=== PATIENT | female | born 1975 | race Caucasian/White ===

== ENCOUNTER 2020-06-26 10:39 | Observation (INO) | payer SELFPAY ==
[~2020-06-26] VITALS: Ht 162.6 cm; Wt 104.5 kg
[~2020-06-26 10:39] MED LIST: FLEXERIL 1010 MG/TAB PO; NORCO 325 MG-51 TAB PO
[2020-06-26] MEDS ORDERED: PRILOTC PO (10:49)
[2020-06-26] MEDS ORDERED: LIPITOR 10MG10 MG PO (10:50)
[2020-06-26] MEDS ORDERED: ALLEGRA ALLERG180 MG PO (10:50)
[2020-06-26] MEDS ORDERED: TOPAMAX50 MG PO (10:50)
[2020-06-26] MEDS ORDERED: TAPAZOLE5 MG PO (10:52)
[2020-06-26] MEDS ORDERED: WELLBUTRIN SR100 M1 PO (10:52)
[2020-06-26] MEDS ORDERED: FIORICET 325 MG1 TA1 PO (10:53)
[2020-06-26] MEDS ORDERED: XYZAL5 MG PO (10:54)
[2020-06-26] MEDS ORDERED: BIOTIN5000 MCG PO (10:54)
[2020-06-26] MEDS ORDERED: TYLENOL 8 HR PO (10:55)
[2020-06-26] MEDS ORDERED: VITAMIN B12 1541 TAB PO (10:55)
[2020-06-26] MEDS ORDERED: PRENATAL MVI PO (10:56)
[2020-06-26 11:21] LABS: BASO % 0.4 % (0.0-2.0); EOS # 0.1 (0.0-0.7); EOS % 1.2 % (0-4.0); GRAN # 5.3 (1.4-6.5); HEMATOCRIT 42.1 % (37.0-47.0); HEMOGLOBIN 14.1 g/dl (12.5-16.0); LYMPH % 33.7 % (20.0-51.0); MEAN CELL VOLUME 98 fl (80.0-100.0); MEAN CORPUSCULAR HEMOGLOBIN 33 pg (27.0-31.0); MEAN CORPUSCULAR HGB CONC 34 g/dl (33.0-37.0); MEAN PLATELET VOLUME 10.8 fl (7.4-10.4); MONO # 0.5 (0.1-0.6); MONO % 5.4 % (1.7-9.3); PLATELET COUNT 257 K/mm3 (130-400); RED BLOOD COUNT 4.32 M/mm3 (4.10-5.30); REDCELL DISTRIBUTION WIDTH-CV 12.5 % (11.5-14.5)
[2020-06-26 11:32] LABS: ALANINE AMINOTRANSFERASE 22 U/L (4-34); ALBUMIN 4.4 gm/dL (3.5-5.0); ALKALINE PHOSPHATASE 81 U/L (50-136); ANION GAP 11 mmol/L (7-16); AST,SGOT 30 U/L (15-37); BILIRUBIN,TOTAL 0.2 mg/dL (0.0-1.0); BLOOD UREA NITROGEN 11 mg/dL (7-17); C-REACTIVE PROTEIN 0.6 mg/dL (0.0-0.9); CALCIUM 9.3 mg/dL (8.4-10.2); CARBON DIOXIDE 20 mmol/L (22-30); CHLORIDE 110 mmol/L (98-107); GLUCOSE 135 mg/dL (74-106); LIPASE 83 U/L (23-300); POTASSIUM 3.7 mmol/L (3.4-5.0); SODIUM 140 mmol/L (137-145)
[2020-06-26 11:33] LABS: D-DIMER < 200.00 ng/mLDDu (200-230); PROTHROMBIN TIME 11.4 SECONDS (9.7-12.8)
[2020-06-26] MEDS ORDERED: ZYRTEC 10MG10 MG PO (11:56)
[2020-06-26 12:07] LABS: TROPONIN-I < 0.012 ng/mL (0.000-0.035)
[2020-06-26 13:25] LABS: COLLECTION METHOD CLEAN CATCH
[2020-06-26 13:42] LABS: MUCOUS Present /lpf; PH 5 (5-8); SQUAMOUS EPITHELIAL None Seen /hpf; URINE APPEARANCE Clear; URINE BACTERIA None Seen /hpf; URINE BILIRUBIN Positive (NEGATIVE); URINE BLOOD Negative (NEGATIVE); URINE COLOR Yellow; URINE GLUCOSE Negative (NEGATIVE); URINE KETONE Negative (NEGATIVE); URINE LEUKOCYTE ESTERASE Negative (NEGATIVE); URINE NITRATE Negative (NEGATIVE); URINE PROTEIN(semi-quant) Negative (NEGATIVE); URINE RBC 0-2 /hpf; URINE UROBILINOGEN Negative (NEGATIVE)
[2020-06-26 13:54] VITALS: BP 134/78; PULSE 68; TEMP 97.7
[2020-06-26 15:45] VITALS: BP 144/82; PULSE 76; TEMP 98.4
--- NOTE | 2020-06-26 18:09 | NUR ---
Patient admitted from the ED for chest pain that was relieved with nitro. Upon initial assessment patient denied and chest pain or SOA. Normal S1 and S2 sounds present, radial and pedal pulses were +2 bilaterally, lungs sounds clear in all bailey, bowel sounds present in all four quadrants, patient is A&O. Patient has two IVS, 22 R wrist and 22 R AC, both are clean dry and intact, no signs of phlebitis. VSS. Scheduled meds given. Patient to have a stress test done tomorrow morning. NPO after midnight. Patient denies any pain, discomfort, or any further needs at this time. Will continue to monitor.
[2020-06-26 20:47] VITALS: BP 145/79; PULSE 71; TEMP 98.5
[2020-06-26 23:52] VITALS: BP 153/86; PULSE 69; TEMP 97.6
[2020-06-27] VITALS (9 sets, daily range): BP systolic 128–163; BP diastolic 64–90; PULSE 65–101; TEMP 97.6–98
--- NOTE | 2020-06-27 05:40 | NUR ---
RESTED THROUGHOUT THE NIGHT WITHOUT INCIDENT. DENIES SOA, CHEST PAIN OR DIZZY. NPO SINCE MIDNIGHT FOR LEXISCAN. NEEDS MET.
[2020-06-27 06:00] LABS: HEMATOCRIT 39.8 % (37.0-47.0); MEAN CELL VOLUME 99 fl (80.0-100.0); MEAN CORPUSCULAR HEMOGLOBIN 32 pg (27.0-31.0); MEAN CORPUSCULAR HGB CONC 33 g/dl (33.0-37.0); PLATELET COUNT 236 K/mm3 (130-400); RED BLOOD COUNT 4.02 M/mm3 (4.10-5.30); REDCELL DISTRIBUTION WIDTH-CV 12.6 % (11.5-14.5)
[2020-06-27 06:08] LABS: ANION GAP 8 mmol/L (7-16); BLOOD UREA NITROGEN 13 mg/dL (7-17); CALCIUM 9.2 mg/dL (8.4-10.2); CARBON DIOXIDE 24 mmol/L (22-30); CHLORIDE 109 mmol/L (98-107); CHOLESTEROL 131 mg/dL (120-200); CHOLESTEROL RISK RATIO 3.1; CREATININE, serum 0.81 (0.52-1.25); GLUCOSE 106 mg/dL (74-106); HDL CHOLESTEROL 42 mg/dL; LDL CHOLESTEROL 54 mg/dL; POTASSIUM 3.7 mmol/L (3.4-5.0); SODIUM 141 mmol/L (137-145); TRIGLYCERIDE 175 mg/dL
[2020-06-27 06:19] LABS: TROPONIN-I < 0.012 ng/mL (0.000-0.035)
--- NOTE | 2020-06-27 08:15 | NUR ---
Scheduled meds given. Assessments performed. Patient denies any pain, discomfort, or SOA. Denies any needs at this time. Will continue to monitor. Call light within reach.
--- NOTE | 2020-06-27 12:56 | NUR ---
First visit from the self sealing fuel tank repairer. No needs right now.
--- NOTE | 2020-06-27 14:26 | NUR ---
Patient had Anaya Scan performed. Tolerated procedure well. Patient deemded fit for discharge by Dr. Casas. Discharge education/instructions given. Patient denied any further questions or concerns. IV DC'd catheter intact, no signs of phlebitis. VSS. Patient ambulated from building escorted by [facility] Staff.
== END 2020-06-27 14:32 | disposition home or self-care (01) ==
LOC: COL.ER 10:39 → MEDICAL 12:29
PROVIDERS: Emergency Medicine; Physician Assistant; ADMIT Hospitalist
DX: R07.9 Chest pain, unspecified (principal); K21.9 Gastro-esophageal reflux disease without esophagitis; J30.9 Allergic rhinitis, unspecified; E78.5 Hyperlipidemia, unspecified; G43.909 Migraine, unspecified, not intractable, without status migrainosus; F41.9 Anxiety disorder, unspecified; E05.90 Thyrotoxicosis, unspecified without thyrotoxic crisis or storm; E66.9 Obesity, unspecified; F17.210 Nicotine dependence, cigarettes, uncomplicated; Z90.710 Acquired absence of both cervix and uterus; Z79.899 Other long term (current) drug therapy; Z88.2 Allergy status to sulfonamides; Z88.1 Allergy status to other antibiotic agents; Z88.5 Allergy status to narcotic agent; Z91.040 Latex allergy status; Z91.048 Other nonmedicinal substance allergy status; Z82.49 Family history of ischemic heart disease and other diseases of the circulatory system
CPT/HCPCS: A9500; G0378; J1650; J2060; J2785

== ENCOUNTER 2023-08-23 20:28 | Observation (INO) | payer SELFPAY ==
[~2023-08-23] VITALS: Ht 162.6 cm; Wt 102.3 kg
[~2023-08-23 20:28] MED LIST changes: +ALLEGRA ALLERG180 MG PO; +BIOTIN5000 MCG PO; +FIORICET 325 MG1 TA1 PO; +LIPITOR 10MG10 MG PO; +PRENATAL MVI PO; +PRILOTC PO; +TAPAZOLE5 MG PO; +TOPAMAX50 MG PO; +TYLENOL 8 HR PO; +VITAMIN B12 1541 TAB PO; +WELLBUTRIN SR100 M1 PO; +XYZAL5 MG PO; +ZYRTEC 10MG10 MG PO
[2023-08-23 21:20] LABS: BASO % 0.5 % (0.0-2.0); EOS % 0.5 % (0.0-4.0); GRAN # 4.1 K/mm3 (1.4-6.5); GRAN % 55.1 % (42.2-75.2); HEMATOCRIT 41.4 % (37.0-47.0); HEMOGLOBIN 13.6 g/dl (12.5-16.0); LYMPH % 39.5 % (20.0-51.0); MEAN CELL VOLUME 94 fl (80.0-100.0); MEAN CORPUSCULAR HEMOGLOBIN 31 pg (27-31); MEAN CORPUSCULAR HGB CONC 33 g/dl (33.0-37.0); MEAN PLATELET VOLUME 11.5 fl (7.4-10.4); MONO # 0.3 K/mm3 (0.1-0.6); MONO % 4.3 % (1.7-9.3); PLATELET COUNT 231 K/mm3 (130-400); RED BLOOD COUNT 4.42 M/mm3 (4.10-5.30); REDCELL DISTRIBUTION WIDTH-CV 12.2 % (11.5-14.5)
[2023-08-23 21:24] LABS: INR 1.1 (0.8-3.0); PARTIAL THROMBOPLASTIN TIME 36.2 SECONDS (26.0-37.0); PROTHROMBIN TIME 12.5 SECONDS (9.7-12.8)
[2023-08-23 21:25] LABS: D-DIMER < 200.00 ng/mLDDu (200-230)
[2023-08-23 21:31] LABS: ALANINE AMINOTRANSFERASE 14 U/L (0-55); ALKALINE PHOSPHATASE 86 U/L (40-150); ANION GAP 13 mmol/L (7-16); AST,SGOT 18 U/L (5-34); BILIRUBIN,TOTAL 0.2 mg/dL (0.2-1.2); BLOOD UREA NITROGEN 7 mg/dL (7-19); C-REACTIVE PROTEIN 0.39 mg/dL (0.00-0.50); CALCIUM 10.1 mg/dL (8.4-10.2); CHLORIDE 106 mEq/L (98-107); CREATININE, serum 1.13 mg/dL (0.57-1.11); GLUCOSE 131 mg/dL (70-99); LIPASE 24 U/L (8-78); MAGNESIUM 1.7 mg/dL (1.6-2.6); POTASSIUM 3.3 mEq/L (3.5-4.5); SODIUM 139 mEq/L (136-145)
[2023-08-23 21:38] LABS: TROPONIN-I < 0.010 ng/mL (0.00-0.033)
[2023-08-23] MEDS ORDERED: Morphine 4 MG/ML VIAL IV ONE (22:15)
[2023-08-23] MEDS ORDERED: Heparin/D5W 250 ML IV SCH (22:30)
[2023-08-23] MEDS ORDERED: Heparin 5,000 UNITS/ML 1 ML VIAL IV PRN (22:30)
[2023-08-23] MEDS ORDERED: Heparin 5,000 UNITS/ML 1 ML VIAL IV ONE (22:30)
[2023-08-24] VITALS (12 sets, daily range): BP systolic 106–151; BP diastolic 66–85; PULSE 41–135; TEMP 97.8–98.2
[2023-08-24] MEDS ORDERED: AMBIEN CR 12.12.5 MG PO (00:45)
[2023-08-24] MEDS ORDERED: Morphine 4 MG/ML VIAL IV PRN (00:45)
[2023-08-24] MEDS ORDERED: PROZAC40 MG PO (00:45)
[2023-08-24] MEDS ORDERED: Topiramate 25 MG TAB PO SCH (00:46)
[2023-08-24] MEDS ORDERED: PRINIVIL20 MG PO (00:47)
[2023-08-24] MEDS ORDERED: methIMAzole 5 MG TAB PO SCH (00:47)
[2023-08-24] MEDS ORDERED: Lisinopril 20 MG TAB PO SCH (00:49)
[2023-08-24] MEDS ORDERED: MULTIPLE VITAMI1 CAP PO (00:51)
[2023-08-24] MEDS ORDERED: VITAMIN D31000 I1 PO (00:51)
[2023-08-24] MEDS ORDERED: NATURAL MAGNES200 MG PO (00:52)
[2023-08-24] MEDS ORDERED: ASPIRIN 81M81 MG/TA2 PO (00:53)
[2023-08-24] MEDS ORDERED: Omeprazole 20 MG **** subs to Pantoprazole 40 MG PO SCH (01:00)
[2023-08-24] MEDS ORDERED: *Potassium Replacement Protocol MC SCH (01:15)
[2023-08-24] MEDS ORDERED: Potassium Chloride 100 ML IV SCH (01:15)
--- NOTE | 2023-08-24 01:25 | NUR ---
Patient arrived to room 319 with personal belongings at this time. Rates her pain at 6/10 at this time, prn pain meds given. Needs met. Assessment and med rec complete. IV in left AC infusing with Heparin at 10mL/hr without complications. Oriented patient to room, call light, bed, and bathroom. Call light and personal items in reach. Bed in low position.
[2023-08-24] MEDS ORDERED: NS 1,000 ML IV SCH (02:00)
--- NOTE | 2023-08-24 02:45 | NUR ---
Patient scored a moderate risk on suicide assessment. Spoke with hospitalist Alaina about patient stating this is her baseline and she does not have any active plans or current thoughts of acting on anything. She is currently seeing a therapist which has helped her greatly. She has attempted once before many years ago trying to overdose which landed her in the hospital but again states she hasn't attempted or tried to attempt since. Hospitalist states "As long as she is saying she is not actively having any suicidal thoughts/ plans she does not need to be Q15m checks."
[2023-08-24] MEDS ORDERED: Atorvastatin 40 MG TAB PO SCH (04:08)
[2023-08-24] MEDS ORDERED: Albuterol/Ipratropium 3 MG-0.5 MG/3 ML Neb Soln IH PRN (04:45)
[2023-08-24] MEDS ORDERED: Nitroglycerin 2% Topical Oint 1 GM UD TD SCH (08:00)
[2023-08-24] MEDS ORDERED: Cetirizine 10 MG TAB PO SCH (09:00)
[2023-08-24] MEDS ORDERED: Multivitamin TAB PO SCH (09:00)
[2023-08-24] MEDS ORDERED: Loratadine 10 MG TAB PO SCH (09:00)
[2023-08-24] MEDS ORDERED: FLUoxetine 20 MG CAP PO SCH (09:00)
[2023-08-24] MEDS ORDERED: Cholecalciferol (Vit D3) 1000 Units TAB PO SCH (09:00)
[2023-08-24] MEDS ORDERED: Fexofenadine 180 MG **** subs to Loratadine 10 MG PO SCH (09:00)
--- NOTE | 2023-08-24 09:40 | NUR ---
PT LAYING IN BED UPON ENTERING. ASSESSMENT DONE, MEDS GIVEN. NITRO PASTE HELD PER CARDIOLOGY FOR STRESS TEST. PT UPDATED ON PLAN FOR STRESS TEST AND STRESS TEST, PT VERBALIZED UNDERSTANDING. HEPARIN RUNNING AT 9 MLS/HR PER ORDER AND NS RUNNING PER ORDER IN LEFT AC. CLARATIN ORDERED AND PT STATES THAT SHE IS ALLERGIC, NOT GIVEN. PT DENIES PAIN. PT DENIES NEEDS. BED IN LOWEST POSITION, CALL LIGHT IN REACH.
--- NOTE | 2023-08-24 09:43 | NUR ---
Banjo Repair Person met with patient to discuss discharge plan. Patient lives outside of [place] with her , Conrad (ph#[phone]) and goes to [facility] for primary care. Patient gets medications from [facility] and is currently self pay. Patient advised a few years ago she applied for Medicaid, however her made too much money and she was denied. Patient however has been diagnosed with MS since then so SW consulted Financial Counseling to inquire about Medicaid eligibility. Patient advised she is independent with ADLS, including driving and has a cane at home, but normally does not use it. Patient does not have DPOA-HC and was not interested in creating one at this time. Patient plans to return home at time of discharge. Discharge Plan: Home
[2023-08-24 11:08] LABS: CHOLESTEROL RISK RATIO 4.2
--- NOTE | 2023-08-24 13:00 | NUR ---
1145 HEPXA NOT DRAWN. LAB CALLED AND NOTIFIED, THIS NURSE TOLD THAT A TECH IS CURRENTLY ON THE FLOOR. SHORTLY AFTER NUCLEAR MEDICINE ON FLOOR TO TAKE PT TO STRESS TEST
[2023-08-24] MEDS ORDERED: Regadenoson 0.08 MG/ML 5 ML SYRINGE IV SCH (13:29)
--- NOTE | 2023-08-24 14:13 | NUR ---
LAB CALLED AND NOTIFIED THE PT WILL BE RETURNING FROM PROCEDURE SOON
--- NOTE | 2023-08-24 15:10 | NUR ---
HEPXA 0.26, NO CHANGE PER PROTOCOL. CORY SCAN NORMAL PER CARDIOLOGY. PT DENIES NEEDS.
[2023-08-24] MEDS ORDERED: NITROSTAT0.4 MG/TAB SL (15:26)
--- NOTE | 2023-08-24 15:28 | NUR ---
EILEEN, CARDIOLOGY, CALLED AND NOTIFIED THIS NURSE THAT CORY SCAN WAS NEGATIVE AND PT CAN EAT. PT GIVEN SANDWICH TRAY
--- NOTE | 2023-08-24 18:22 | NUR ---
IV AND TELE REMOVED. DISCHARGE INSTRUCTIONS GIVEN AND PT VERBALIZED UNDERSTANDING. PT WAITING ON RIDE AND NOTIFIED TO PRESS CALL LIGHT WHEN READY, PT VERBALIZED UNDERSTANDING.
--- NOTE | 2023-08-24 20:14 | NUR ---
Patients arrived to room 319. Patient has all belongings and walked out with at this time.
== END 2023-08-24 20:14 | disposition home or self-care (01) ==
LOC: COL.ER 20:28 → MEDICAL 08-24 00:26
PROVIDERS: Emergency Medicine; Physician Assistant; ADMIT Internal Medicine
DX: R07.89 Other chest pain (principal); E87.6 Hypokalemia; I10 Essential (primary) hypertension; E78.5 Hyperlipidemia, unspecified; R00.1 Bradycardia, unspecified; J45.909 Unspecified asthma, uncomplicated; G47.9 Sleep disorder, unspecified; E05.90 Thyrotoxicosis, unspecified without thyrotoxic crisis or storm; G35 Multiple sclerosis; K21.9 Gastro-esophageal reflux disease without esophagitis; G40.909 Epilepsy, unspecified, not intractable, without status epilepticus; F41.9 Anxiety disorder, unspecified; F32.A Depression, unspecified; G43.909 Migraine, unspecified, not intractable, without status migrainosus; G47.00 Insomnia, unspecified; Z79.899 Other long term (current) drug therapy; Z99.89 Dependence on other enabling machines and devices; Z79.890 Hormone replacement therapy; Z79.82 Long term (current) use of aspirin; Z87.891 Personal history of nicotine dependence; Z56.0 Unemployment, unspecified
CPT/HCPCS: A9500-JZ; G0378; J1644; J2270; J2785; J3480; J7030

== ENCOUNTER 2023-10-20 08:11 | Day surgery (SDC) | payer SELFPAY ==
[2023-10-20] VITALS (12 sets, daily range): BP systolic 91–125; BP diastolic 51–78; PULSE 56–73; TEMP 97.7–98.5
[~2023-10-20] VITALS: Ht 162.6 cm; Wt 96.2 kg
[~2023-10-20 08:11] MED LIST changes: +AMBIEN CR 12.12.5 MG PO; +ASPIRIN 81M81 MG/TA2 PO; +MAG-OX 400400 MG/TAB PO; +MULTIPLE VITAMI1 CAP PO; +NITROSTAT0.4 MG/TAB SL; +PRINIVIL20 MG PO; +PROZAC60 MG; +VITAMIN D31000 I1 PO
[2023-10-20] MEDS ORDERED: ceFAZolin 2 G in Water For Injection,Sterile 20 ML IV SCH (09:00)
[2023-10-20] MEDS ORDERED: 1/2 NS 1,000 ML IV SCH (09:00)
[2023-10-20 09:42] LABS: HEMOGLOBIN 12.1 g/dl (12.5-16.0); MEAN CELL VOLUME 96 fl (80.0-100.0); MEAN CORPUSCULAR HEMOGLOBIN 31 pg (27-31); MEAN CORPUSCULAR HGB CONC 33 g/dl (33.0-37.0); MEAN PLATELET VOLUME 10.6 fl (7.4-10.4); PLATELET COUNT 231 K/mm3 (130-400); RED BLOOD COUNT 3.85 M/mm3 (4.10-5.30); REDCELL DISTRIBUTION WIDTH-CV 12.8 % (11.5-14.5)
[2023-10-20] MEDS ORDERED: NATURAL E400 IU PO (09:52)
[2023-10-20 09:53] LABS: HEMATOCRIT 36.8 % (37.0-47.0)
[2023-10-20 09:56] LABS: INR 1.1 (0.8-3.0); PROTHROMBIN TIME 12.2 SECONDS (9.7-12.8)
[2023-10-20] MEDS ORDERED: [UNRECOGNIZED DRUG - CODE] PO (10:02)
[2023-10-20 10:16] LABS: CREATININE, serum 0.94 mg/dL (0.57-1.11); POTASSIUM 3.8 mEq/L (3.5-4.5)
[2023-10-20] MEDS ORDERED: Iohexol 350 - 100 ML VIAL IV ONE (11:20)
[2023-10-20] MEDS ORDERED: NS 1,000 ML IV.SOLN. IR SCH (11:22)
[2023-10-20] MEDS ORDERED: diphenhydrAMINE 50 MG/ML 1 ML VIAL IV SCH (11:24)
[2023-10-20] MEDS ORDERED: fentaNYL 50 MCG/ML 2 ML VIAL IV SCH (11:37)
[2023-10-20] MEDS ORDERED: Midazolam 2 MG/2 ML VIAL IV SCH (11:38)
[2023-10-20 11:57] LABS: CALCIUM 9.1 mg/dL (8.4-10.2)
[2023-10-20] MEDS ORDERED: SUBS TO ZOLPIDEM PO PRN (12:15)
[2023-10-20] MEDS ORDERED: ZOLPIDEM 12.5 MG PO PRN (12:15)
[2023-10-20] MEDS ORDERED: Temazepam 15 MG CAP PO PRN (12:15)
--- NOTE | 2023-10-20 12:20 | NUR ---
Patient to room 351 from the photofinishing laboratory worker. A&Ox4. VSS. Post op VS monitored. IV CDI. LF arm in sling. Ice applied to incision. LF incision site CDI. Denies pain and discomfort. PAtient is hungry and thirsty. Nurse oriented the patient to location, room and call light. No further needs expressed. Call light withinr each
--- NOTE | 2023-10-20 12:23 | NUR ---
Marlene is transferred to medical floor rm 351 after pacemaker implant with Dr. Mike. She is awake and alert, pwd with reg and unlabored respirations. Pacer site is clean dry, dressing is intact. ice pack to site upon arrival to room. Pt hooked up for post procedure vitals. BS report and handoff of care to Mayda RN. Please see merge document in paper chart for record of procedure.
[2023-10-20] MEDS ORDERED: Docusate Sodium 100 MG CAP PO PRN (12:30)
[2023-10-20] MEDS ORDERED: Acetaminophen 325 MG TAB PO PRN (12:30)
[2023-10-20] MEDS ORDERED: Cephalexin 500 MG CAP PO SCH (14:00)
[2023-10-20] MEDS ORDERED: methIMAzole 5 MG TAB PO SCH (14:00)
--- NOTE | 2023-10-20 18:54 | NUR ---
PATIENT RESTING IN BED WITH TV ON WITH NO FAMILY PRESENT WITH NO ACUTE DISTRESS NOTED. PATIENT ON ROOM AIR. INT TO LEFT AC INTACT WITH NO COMPLICATIONS NOTED. SLING ON. ICE PACK OVER DRESSING TO LEFT UPPER CHEST WITH DRESSING CLEAN, DRY, AND INTACT. TELEMETRY ON. BEDSIDE SHIFT REPORT COMPLETED WITH YOLI AT THIS TIME. PATIENT DENIES ANY NEEDS. BED IN LOW POSITION WITH WHEELS LOCKED WITH RAILS UP X3 AND CALL LIGHT WITHIN REACH.
[2023-10-20] MEDS ORDERED: Omeprazole 20 MG **** subs to Pantoprazole 40 MG PO SCH (21:00)
[2023-10-20] MEDS ORDERED: Zolpidem 10 MG TAB PO PRN (21:00)
[2023-10-20] MEDS ORDERED: Topiramate 25 MG TAB PO SCH (21:00)
--- NOTE | 2023-10-20 21:22 | NUR ---
PATIENT RESTING IN BED WITH TV ON WTIH NO FAMILY PRESENT WITH NO ACUTE DISTRESS NOTED. PATIENT ON ROOM AIR. DRESSING TO LEFT UPPER CHEST CLEAN, DRY, AND INTACT. SLING ON LEFT ARM. ICE PACK ON DRESSING TO LEFT UPPER CHEST. INT TO LEFT AC INTACT WITH NO COMPLICATIONS NOTED. TELEMETRY INTACT. ASSESSMENT AND MEDICATION ADMINISTRATION COMPLETED AT THIS TIME. PATIENT REQUESTED TO GO TO BATHROOM, PITCHER OF ICE, AND DR. CHOUDHARY. PATIENT ASSISTED UP TO BATHROOM WITH STAND BY ASSIST. PATIENT VOIDED AND DID OWN ALLISON CARE. PATIENT AMBULATED BACK TO BED AND HELPED TO REPOSITION FOR COMFORT. ICE PACK REFRESHED AND PITCHER OF ICE GIVEN. GIVEN TO PATIENT. PATIENT TOELRATED WELL. HOME CPAP SET UP AND STERILE WATER GIVEN ALONG WITH BEING PLACED IN CPAP. MASK GIVEN TO PATIENT TO PLACE ON WHEN SHE WAS READY. ALL NEEDS MET. BED IN LOW POSITION WITH WHEELS LOCKED WITH RAILS UP X3 AND CALL LIGHT WITHIN REACH.
[2023-10-21] VITALS: BP_SYST 113
[2023-10-21 03:33] VITALS: BP 112/72; PULSE 69; TEMP 97.4
[2023-10-21 04:00] VITALS: BP_SYST 112
[2023-10-21 07:13] VITALS: BP 131/84; PULSE 59; TEMP 97.8
--- NOTE | 2023-10-21 07:51 | NUR ---
Bedside report received from APOLINAR Cuellar. Pt resting in bed with no complaints. Device download complete. Radiology notified by phone for CXR. Call light within reach.
--- NOTE | 2023-10-21 08:28 | NUR ---
Pt awake in bed with no complaints. Shift assessment. VSS. Dressing to Lt upper chest CDI, covered with gauze and tape. Pt denies pain at this time rating 0/10. Redness to Rt side of neck noted from sling rubbing on skin. INT to Lt AC patent, flushes without complications. Pt has no request at this time. Call light within reach.
[2023-10-21 08:36] VITALS: BP_SYST 131
[2023-10-21] MEDS ORDERED: Multivitamin TAB PO SCH (09:00)
[2023-10-21] MEDS ORDERED: Patient's Own Medication Item PO SCH (09:00)
[2023-10-21] MEDS ORDERED: Cetirizine 10 MG TAB PO SCH (09:00)
[2023-10-21] MEDS ORDERED: Cholecalciferol (Vit D3) 1000 Units TAB PO SCH (09:00)
[2023-10-21] MEDS ORDERED: Magnesium Oxide 400 MG TAB PO SCH (09:00)
[2023-10-21] MEDS ORDERED: Fexofenadine 180 MG **** subs to Loratadine 10 MG PO SCH (09:00)
[2023-10-21] MEDS ORDERED: FLUoxetine 20 MG CAP PO SCH (09:00)
[2023-10-21] MEDS ORDERED: D-Alpha Tocopheryl (Vitamin E) 400 Units (180 mg) CAP PO SCH (09:00)
[2023-10-21] MEDS ORDERED: Cyanocobalamin (Vit B-12) 1,000 MCG TAB PO SCH (09:00)
--- NOTE | 2023-10-21 09:03 | NUR ---
Bullet Lubricant Mixer met with patient to discuss discharge planning. Patient lives in [place] with her , Conrad (ph#[phone]) and goes to the [facility] currently for primary care. Patient is self pay at this time, however has a phone appointment with social security on 11/08/23 and is working on a Medicaid application. Patient gets her medications from [facility] and has a home CPAP. Patient also reported having a cane, but that she does not normally need it. Patient does not have DPOA-HC and was not interested in completing one at this time. Patient stated she is independent with ADLS, including driving and plans to return home at time of discharge. Discharge Plan: Home
[2023-10-21] MEDS ORDERED: CEPHALEXIN500 M1 PO (10:47)
--- NOTE | 2023-10-21 12:32 | NUR ---
Discharge paperwork provided to pt and pt verbalized understanding of discharge instructions. INT to Lt AC discontinued with tip intact, pt tolerated well with no complaints. Telemetry discontinued. Pt is leaving facility with family back to home.
== END 2023-10-21 12:33 | disposition home or self-care (01) ==
LOC: COL.CAR 08:11 → MEDICAL 12:20 → COL.CAR 10-21 12:33
PROVIDERS: Internal Medicine Cardiovascular Disease
DX: I49.5 Sick sinus syndrome (principal); Z79.899 Other long term (current) drug therapy
CPT/HCPCS: OP; J0665-JZ; J0688; J0690; J1200; J2250; J3010; J7030; Q9967